=== PATIENT | male | born 1945 | race Caucasian/White ===

== ENCOUNTER 2016-11-01 08:42 | Outpatient (CLI) ==
[2015-11-14 15:56] VITALS: BMI 41.3
[2016-11-01 12:30] LABS: BASOPHILS % (AUTO) 0.5 % (0.0-3.0); EOSINOPHILS # (AUTO) 0.2 K/ul (0.0-0.7); EOSINOPHILS % (AUTO) 3.3 % (0.0-7.0); HEMATOCRIT 36.5 % (42.0-52.0); HEMOGLOBIN 12.2 g/dl (14.0-18.0); IMMATURE GRANULOCYTE % (AUTO) 0.2 % (0.0-5.0); LYMPHOCYTES # (AUTO) 2.6 K/uL (0.60-3.4); LYMPHOCYTES % (AUTO) 45.7 (10.0-50.0); MEAN CORPUSCULAR HEMOGLOBIN 29.6 pg (27.0-31.0); MEAN CORPUSCULAR HGB CONC 33.4 (31.8-35.4); MEAN CORPUSCULAR VOLUME 88.6 fl (80.0-94.0); MONOCYTES # (AUTO) 0.6 K/uL (0.4-2.0); MONOCYTES % (AUTO) 10.5 (0-10); NEUTROPHILS # (AUTO) 2.3 K/ul (2.0-6.9); NEUTROPHILS % (AUTO) 39.8; PLATELET COUNT 182 10^3/uL (140-440); RED BLOOD COUNT 4.12 10^6/ul (4.70-6.10); WHITE BLOOD COUNT 5.69 K/ul (4.2-10.2)
[2016-11-01 12:36] LABS: BILIRUBIN,URINE Negative (NEGATIVE); KETONES,URINE Negative (NEGATIVE); LEUKOCYTE ESTERASE ,URINE Negative (NEGATIVE); NITRITE,URINE Negative (NEGATIVE); PH,URINE 5.5 (5-9); PROTEIN,URINE Negative (NEGATIVE); URINE, BLOOD Negative (NEGATIVE)
[2016-11-01 12:40] LABS: ADD URINE MICROSCOPIC NO
[2016-11-01 12:42] LABS: ALBUMIN 3.6 g/dL (3.4-5.0); ALBUMIN/GLOBULIN RATIO 1.13; ANION GAP 12.6; BILIRUBIN,TOTAL 1.3 mg/dL (0.00-1.20); BUN/CREATININE RATIO 14.14; CALCIUM 8.6 mg/dL (8.2-10.2); CREATININE 0.99 mg/dL (0.60-1.10); POTASSIUM 3.6 mmol/L (3.5-5.1); TOTAL PROTEIN 6.8 g/dL (5.8-8.1)
== END 2016-11-01 08:43 | disposition home or self-care (01) ==
LOC: LAB 08:42
PROVIDERS: ATTEND General Practice
DX: I10 Essential (primary) hypertension (principal); E11.8 Type 2 diabetes mellitus with unspecified complications; E78.5 Hyperlipidemia, unspecified; Z79.899 Other long term (current) drug therapy
CPT/HCPCS: 36415; 80053; 81001; 83036; 85025

== ENCOUNTER 2017-05-05 12:48 | Outpatient (CLI) ==
[2015-11-14 15:56] VITALS: BMI 41.3
[2017-05-05 12:57] LABS: ADD URINE MICROSCOPIC NO; BASOPHILS % (AUTO) 0.5 % (0.0-3.0); BILIRUBIN,URINE Negative (NEGATIVE); EOSINOPHILS # (AUTO) 0.3 K/ul (0.0-0.7); HEMATOCRIT 38.8 % (42.0-52.0); HEMOGLOBIN 13.1 g/dl (14.0-18.0); IMMATURE GRANULOCYTE % (AUTO) 0.2 % (0.0-5.0); KETONES,URINE Negative (NEGATIVE); LEUKOCYTE ESTERASE ,URINE Negative (NEGATIVE); LYMPHOCYTES # (AUTO) 2.9 K/uL (0.60-3.4); LYMPHOCYTES % (AUTO) 44.1 (10.0-50.0); MEAN CORPUSCULAR HGB CONC 33.8 (31.8-35.4); MEAN CORPUSCULAR VOLUME 88.8 fl (80.0-94.0); MONOCYTES # (AUTO) 0.6 K/uL (0.4-2.0); MONOCYTES % (AUTO) 9.9 (0-10); NEUTROPHILS # (AUTO) 2.7 K/ul (2.0-6.9); NEUTROPHILS % (AUTO) 41.3; NITRITE,URINE Negative (NEGATIVE); PH,URINE 5.5 (5-9); PLATELET COUNT 198 10^3/uL (140-440); PROTEIN,URINE Negative (NEGATIVE); RED BLOOD COUNT 4.37 10^6/ul (4.70-6.10); URINE, BLOOD Negative (NEGATIVE); WHITE BLOOD COUNT 6.48 K/ul (4.2-10.2)
[2017-05-05 13:33] LABS: ALBUMIN 3.5 g/dL (3.4-5.0); ALBUMIN/GLOBULIN RATIO 0.95; ANION GAP 13.7; BILIRUBIN,TOTAL 1.24 mg/dL (0.00-1.20); BUN/CREATININE RATIO 12.87; CALCIUM 8.9 mg/dL (8.2-10.2); CHOL/HDL RATIO 4.1 (4.5-6.4); CREATININE 1.01 mg/dL (0.60-1.10); POTASSIUM 3.7 mmol/L (3.5-5.1); TOTAL PROTEIN 7.2 g/dL (5.8-8.1)
== END 2017-05-05 12:49 | disposition home or self-care (01) ==
LOC: LAB 12:48
PROVIDERS: ATTEND General Practice
DX: E11.8 Type 2 diabetes mellitus with unspecified complications (principal); F32.9 Major depressive disorder, single episode, unspecified; I10 Essential (primary) hypertension; R00.1 Bradycardia, unspecified; R63.8 Other symptoms and signs concerning food and fluid intake; Z79.899 Other long term (current) drug therapy; Z12.5 Encounter for screening for malignant neoplasm of prostate
CPT/HCPCS: 36415; 80053; 80061; 81001; 83036; 84443; 85025

== ENCOUNTER 2017-08-15 13:27 | Outpatient (CLI) ==
[2015-11-14 15:56] VITALS: BMI 41.3
== END 2017-08-15 13:28 | disposition home or self-care (01) ==
LOC: LAB 13:27
PROVIDERS: ATTEND General Practice
DX: E11.8 Type 2 diabetes mellitus with unspecified complications (principal); I10 Essential (primary) hypertension; R00.1 Bradycardia, unspecified; Z79.899 Other long term (current) drug therapy
CPT/HCPCS: 36415; 80053; 80061; 81001; 83036; 85025

== ENCOUNTER 2017-12-23 10:55 | Outpatient (CLI) ==
[2015-11-14 15:56] VITALS: BMI 41.3
== END 2017-12-23 10:56 | disposition home or self-care (01) ==
LOC: FCC-LAB 10:55
PROVIDERS: ATTEND General Practice
DX: E11.8 Type 2 diabetes mellitus with unspecified complications (principal); I10 Essential (primary) hypertension; Z79.899 Other long term (current) drug therapy
CPT/HCPCS: 36415; 80053; 80061; 81001; 83036; 85025

== ENCOUNTER 2018-05-14 14:17 | Outpatient (CLI) ==
[2015-11-14 15:56] VITALS: BMI 41.3
== END 2018-05-14 14:18 | disposition home or self-care (01) ==
LOC: RHC-LAB 14:17
PROVIDERS: ATTEND General Practice
DX: D64.9 Anemia, unspecified (principal); I10 Essential (primary) hypertension; E11.8 Type 2 diabetes mellitus with unspecified complications; Z79.899 Other long term (current) drug therapy; Z12.5 Encounter for screening for malignant neoplasm of prostate
CPT/HCPCS: 36415; 80053; 80061; 81001; 85025; 87086

== ENCOUNTER 2018-09-16 06:58 | Outpatient (CLI) ==
[2015-11-14 15:56] VITALS: BMI 41.3
== END 2018-09-16 06:59 | disposition home or self-care (01) ==
LOC: LAB 06:58
PROVIDERS: ATTEND General Practice
DX: E11.8 Type 2 diabetes mellitus with unspecified complications (principal); I10 Essential (primary) hypertension; Z79.899 Other long term (current) drug therapy
CPT/HCPCS: 36415; 80053; 80061; 81001; 83036; 85025

== ENCOUNTER 2019-03-03 08:20 | Outpatient (CLI) ==
[2015-11-14 15:56] VITALS: BMI 41.3
== END 2019-03-03 08:21 | disposition home or self-care (01) ==
LOC: RHC-LAB 08:20
PROVIDERS: ATTEND General Practice
DX: I10 Essential (primary) hypertension (principal); E11.8 Type 2 diabetes mellitus with unspecified complications; K21.9 Gastro-esophageal reflux disease without esophagitis; R00.1 Bradycardia, unspecified; Z79.899 Other long term (current) drug therapy
CPT/HCPCS: 36415; 80053; 80061; 81001; 83036; 85025